=== PATIENT | male | born 1960 ===

== ENCOUNTER 2017-12-13 13:53 | Emergency (ER) | payer BC, OTHER ==
[2017-12-13 14:09] VITALS: O2SAT 98
--- NOTE | 2017-12-13 15:37 | C.PDOC ---
History Of Present Illness 57 y/o male, with PMHx of diabetes, present to ED c/o subjective fever, chills, sweats, body aches, and nasal congestion for the past week. Notes his is also sick with similar symptoms. Note, pt arrived from [place] 1 week ago. Pt was sent to ED by PMD to r/o pneumonia. Denies cough, sore throat, or other complaints. Chief Complaint (Nursing): Fever History Per: Patient History/Exam Limitations: no limitations Past Medical History Reviewed: Historical Data, Nursing Documentation, Vital Signs Vital Signs: Last Vital Signs Temp 98.9 F 12/13/17 16:38 Pulse 86 12/13/17 16:38 Resp 18 12/13/17 16:38 BP 113/67 12/13/17 16:38 Pulse Ox 98 12/13/17 16:38 - Medical History PMH: HTN Surgical History: Appendectomy Family History: States: Unknown Family Hx - Social History Hx Alcohol Use: No Hx Substance Use: No Review Of Systems Except As Marked, All Systems Reviewed And Found Negative. Constitutional: Positive for: Fever, Chills, Sweats, Other (body aches) ENT: Positive for: Nose Congestion. Negative for: Throat Pain Cardiovascular: Negative for: Chest Pain, Palpitations Respiratory: Negative for: Cough, Shortness of Breath Physical Exam - Physical Exam Appears: Non-toxic, No Acute Distress Skin: Normal Color, Warm, Dry Head: Atraumatic, Normacephalic Eye(s): bilateral: Normal Inspection Oral Mucosa: Moist Neck: Normal ROM, Supple Cardiovascular: Rhythm Regular, No Murmur Respiratory: Normal Breath Sounds, No Rales, No Rhonchi, No Wheezing Gastrointestinal/Abdominal: Soft, No Tenderness Extremity: Normal ROM, No Pedal Edema Neurological/Psych: Oriented x3, Normal Speech ED Course And Treatment O2 Sat by Pulse Oximetry: 98 (RA) Pulse Ox Interpretation: Normal Progress Note: CXR, Influenza AB ordered and reviewed. Disposition - Disposition Referrals: [facility] [Outside] Disposition: HOME/ ROUTINE Disposition Time: 16:29 Condition: FAIR Prescriptions: Oseltamivir [Tamiflu] 75 mg PO BID #10 cap Instructions: Influenza (ED) Forms: [employer] (Indonesian) - POA Present On Arrival: None - Clinical Impression Clinical Impression: Influenza - Scribe Statement The provider has reviewed the documentation as recorded by the Placidoibkendall Pfeiffer All medical record entries made by the Renetta were at my direction and personally dictated by me. I have reviewed the chart and agree that the record accurately reflects my personal performance of the history, physical exam, medical decision making, and the department course for this patient. I have also personally directed, reviewed, and agree with the discharge instructions and disposition.
--- NOTE | 2017-12-13 16:01 | RAD ---
HISTORY: fever COMPARISON: Comparison is made with 08/20/2015 TECHNIQUE: Chest PA and lateral FINDINGS: LUNGS: No active pulmonary disease. PLEURA: No significant pleural effusion identified. No pneumothorax apparent. CARDIOVASCULAR: Normal. OSSEOUS STRUCTURES: No significant abnormalities. VISUALIZED UPPER ABDOMEN: Normal. OTHER FINDINGS: None. IMPRESSION: No active disease.
[2017-12-13 16:40] VITALS: BP 113/67; PULSE 86; RESP 18; TEMP 98.9
== END 2017-12-13 16:40 | disposition home or self-care (01) ==
LOC: C.ER 13:53
DX: J11.1 Influenza due to unidentified influenza virus with other respiratory manifestations (principal)